=== PATIENT | male | born 1970 | race Caucasian/White ===

== ENCOUNTER 2021-09-01 18:55 | Inpatient (IN) | payer MEDICAID ==
[~2021-09-01] VITALS: Ht 165.1 cm; Wt 90.0 kg
[~2021-09-01 18:55] MED LIST: ASPI81TA53 PO; ATOR20TA66 PO; CLOP75TA34 PO; LACT10SO7 PO; PANT40TA54 PO; RIFA550T PO
[2021-09-01 19:44] LABS: BASOPHILS # (AUTO) 0.1 X10'3 (0-0.2); BASOPHILS % (AUTO) 1.8 % (0-1); EOSINOPHILS # (AUTO) 0.5 X10'3 (0-0.9); EOSINOPHILS % (AUTO) 12.2 % (0-6); HEMATOCRIT 23.8 % (42.0-52.0); HEMOGLOBIN 7.4 g/dl (14.0-17.9); LYMPHOCYTES % (AUTO) 26.3 % (21-51); MEAN CORPUSCULAR HEMOGLOBIN 24.6 PG (27.0-31.0); MEAN CORPUSCULAR HGB CONC 31.2 g/dL (33.0-36.5); MEAN CORPUSCULAR VOLUME 78.8 FL (78-98); MEAN PLATELET VOLUME 9.1 FL (7.4-10.4); MONOCYTES # (AUTO) 0.4 X10'3 (0-0.9); MONOCYTES % (AUTO) 10.3 % (2-12); NEUTROPHILS # (AUTO) 1.9 X10'3 (1.8-7.7); NEUTROPHILS % (AUTO) 49.4 % (42-75); PLATELET COUNT 57 X10'3 (140-440); RED BLOOD COUNT 3.01 X10'6 (4.70-6.10); RED CELL DISTRIBUTION WIDTH 19.3 % (11.5-14.5); WHITE BLOOD COUNT 3.9 X10'3 (4.5-11.0)
[2021-09-01 19:56] LABS: ALANINE AMINOTRANSFERASE 24 U/L (12-78); ALBUMIN 2.3 G/DL (3.4-5.0); ALBUMIN/GLOBULIN RATIO 0.7 (1.1-1.5); ALKALINE PHOSPHATASE 81 IU/L (46-116); ANION GAP 8 (8-16); ASPARTATE AMINO TRANSFERASE 30 U/L (10-37); BILIRUBIN,TOTAL 1.1 MG/DL (0.1-1.0); BLOOD UREA NITROGEN 22 MG/DL (7-18); BUN/CREATININE RATIO 24.7 (5.4-32.0); CALCIUM 7.5 MG/DL (8.5-10.1); CHLORIDE 109 MMOL/L (99-107); CREATININE 0.89 MG/DL (0.60-1.10); GLUCOSE 108 MG/DL (70-104); POTASSIUM 3.9 MMOL/L (3.5-5.1); SODIUM 140 MMOL/L (135-145); TOTAL CARBON DIOXIDE 22.9 MMOL/L (24-32); TOTAL PROTEIN 5.5 G/DL (6.4-8.2); eGFR > 90 ML/MIN
[2021-09-01 20:39] LABS: LARGE PLATELETS FEW; PLATELET ESTIMATE DECREASED
[2021-09-01 20:40] LABS: ANISOCYTOSIS 2+; ELLIPTOCYTES FEW; MICROCYTOSIS 1+; POLYCHROMASIA FEW; TEAR DROP CELLS FEW
[2021-09-01] MEDS ORDERED: octreotide inj. 500 MCG in normal saline 100ml IV soln 97.5 ML IV SCH (23:00)
[2021-09-01] MEDS ORDERED: pantoprazole 40MG/NS 100ML BAG 100 ML IV SCH (23:00)
[2021-09-01] MEDS ORDERED: octreotide 100mcg/1 ml ampule IV ONE (23:00)
[2021-09-01 23:05] LABS: GASTRIC OCCULT BLOOD POSITIVE (Neg)
[2021-09-01] MEDS: pantoprazole IV 40 MG in dextrose 5%-water 100 ML IV SCH (23:51)
[2021-09-02] VITALS (10 sets, daily range): BP systolic 101–135; BP diastolic 48–70
[2021-09-02] MEDS ORDERED: diphenhydrAMINE 50 mg/ml inj IV PRN (01:25)
[2021-09-02] MEDS ORDERED: HYDROmorphone inj. 0.5 MG/0.5 ML DISP.SYRIN IV PRN (01:25)
[2021-09-02] MEDS ORDERED: diphenhydrAMINE 25mg capsule PO PRN (01:25)
[2021-09-02] MEDS ORDERED: ondansetron 4mg rapidly disintigrating tab PO PRN (01:25)
[2021-09-02] MEDS ORDERED: mag hydrox/Alum hydrox/simeth 30ml oral suspension PO PRN (01:25)
[2021-09-02] MEDS ORDERED: magnesium hydroxide 30ml (MOM) UD suspension PO PRN (01:25)
[2021-09-02] MEDS ORDERED: bisacodyl 10mg suppository rectal RC PRN (01:25)
[2021-09-02] MEDS ORDERED: acetaminophen 650mg rectal suppository RC PRN (01:25)
[2021-09-02] MEDS ORDERED: ondansetron/PF 4mg/2ml inj IV PRN (01:25)
[2021-09-02] MEDS ORDERED: acetaminophen 325mg tablet PO PRN ×2 (01:25)
[2021-09-02] MEDS ORDERED: morphine 2 MG/ML inj. syringe IV PRN ×2 (01:25)
[2021-09-02 01:43] LABS: PARTIAL THROMBOPLASTIN TIME 32 SECONDS (22-32)
[2021-09-02 01:48] LABS: BASOPHILS # (AUTO) 0.1 X10'3 (0-0.2); BASOPHILS % (AUTO) 1.8 % (0-1); EOSINOPHILS # (AUTO) 0.5 X10'3 (0-0.9); EOSINOPHILS % (AUTO) 14.5 % (0-6); HEMATOCRIT 23.6 % (42.0-52.0); HEMOGLOBIN 7.5 g/dl (14.0-17.9); LYMPHOCYTES # (AUTO) 0.9 X10'3 (1.1-4.8); LYMPHOCYTES % (AUTO) 24.7 % (21-51); MEAN CORPUSCULAR HEMOGLOBIN 24.6 PG (27.0-31.0); MEAN CORPUSCULAR HGB CONC 31.6 g/dL (33.0-36.5); MEAN CORPUSCULAR VOLUME 77.8 FL (78-98); MEAN PLATELET VOLUME 10.8 FL (7.4-10.4); MONOCYTES # (AUTO) 0.3 X10'3 (0-0.9); MONOCYTES % (AUTO) 9.1 % (2-12); NEUTROPHILS # (AUTO) 1.8 X10'3 (1.8-7.7); NEUTROPHILS % (AUTO) 49.9 % (42-75); PLATELET COUNT 61 X10'3 (140-440); RED BLOOD COUNT 3.04 X10'6 (4.70-6.10); RED CELL DISTRIBUTION WIDTH 19.6 % (11.5-14.5); WHITE BLOOD COUNT 3.6 X10'3 (4.5-11.0)
[2021-09-02 01:51] LABS: LIPASE 156 U/L (73-393); MAGNESIUM 1.6 MG/DL (1.5-2.4)
[2021-09-02 02:28] LABS: PLATELET ESTIMATE DECREASED
[2021-09-02 02:29] LABS: LARGE PLATELETS FEW; POLYCHROMASIA FEW
[2021-09-02 02:30] LABS: ANISOCYTOSIS 2+; MICROCYTOSIS 1+; TEAR DROP CELLS FEW
[2021-09-02 02:32] LABS: ELLIPTOCYTES FEW
--- NOTE | 2021-09-02 02:34 | NUR ---
ISA CONTACTED IN REGARDS TO [facility]. NO BLOOD ORDERED AND NO NEW ORDERS RECIEVED. DR RUFF OF [facility]
[2021-09-02] MEDS ORDERED: LEVO75TA PO (03:14)
[2021-09-02] MEDS ORDERED: FENO48TA15 PO (03:17)
[2021-09-02] MEDS ORDERED: LACT10SO57 PO (03:18)
[2021-09-02] MEDS ORDERED: PROP10TA10 PO (03:20)
[2021-09-02] MEDS ORDERED: FERR325T28 PO (03:21)
[2021-09-02] MEDS: normal saline 1000ml 1,000 ML IV SCH ×4 (03:25→21:33)
[2021-09-02 04:25] LABS: CLARITY,URINE CLEAR (Clear); COLOR,URINE YELLOW (Yellow); GLUCOSE, URINE NEGATIVE (Neg); KETONES,URINE NEGATIVE (Neg); LEUKOCYTE ESTERASE ,URINE NEGATIVE (Neg); NITRITES, URINE NEGATIVE (Neg); OCCULT BLOOD,URINE NEGATIVE (Neg); PH,URINE 5.5 (4.8-8.0); PROTEIN,URINE NEGATIVE (Neg); UROBILINOGEN,URINE 0.2 E.U/dL (0.2-1.0)
[2021-09-02 04:34] LABS: UA COLLECTION TYPE NON-SPECIFIED
[2021-09-02] MEDS: pantoprazole IV 40 MG in dextrose 5%-water 100 ML IV SCH ×4 (05:08→20:42)
--- NOTE | 2021-09-02 06:30 | NUR ---
FIRST CONTACT WITH PT. PT RESTING IN BED, FLUIDS/MEDS INFUSING PER EMAR. DENIES PAIN. URINAL PROVIDED. NAD.
[2021-09-02] MEDS ORDERED: docusate sod 100mg capsule PO SCH (08:00)
[2021-09-02] MEDS: lactulose 20gm/30ml cup PO SCH ×2 (09:14→19:07)
[2021-09-02] MEDS: rifaximin 550mg tablet PO SCH ×2 (10:12→19:53)
--- NOTE | 2021-09-02 10:19 | NUR ---
HOSPITALIST RANDI. PT HAS QUESTIONS REGARDING HIS ADMISSION.
--- NOTE | 2021-09-02 11:50 | NUR ---
PT STATING HE WOULD LIKE TO LEAVE AMA. PT STATES 'HE IS HUNGRY' AND 'JUST LAYING HERE' WILL PAGE MD AGAIN REGARDING DIET ORDERS. PT AGREEABLE TO STAYING AT THIS TIME.
--- NOTE | 2021-09-02 11:55 | NUR ---
UPDATED VIA TELEPHONE ON POC AND PT STATUS.
--- NOTE | 2021-09-02 14:21 | NUR ---
HOSPITALIST PAGED AGAIN REGARDING DIET FOR PT.
[2021-09-02] MEDS ORDERED: iohexol 350MG/ML 100ml bottle IV ONE ×2 (14:51→17:18)
[2021-09-02] MEDS ORDERED: iohexol 350 MG/ML 50ML vial IV ONE (14:51)
[2021-09-02] MEDS ORDERED: heparin 1,000unit/ml 10ml vial 10 ML ONE (14:51)
[2021-09-02] MEDS ORDERED: LIDOcaine 1% (10mg/ml)w/preservative injection 20ml MDV ONE (14:51)
[2021-09-02] MEDS: octreotide inj. 500 MCG in normal saline 100ml IV soln 97.5 ML IV SCH (15:00)
[2021-09-02] MEDS ORDERED: fentaNYL/PF 50MCG/1 ML 2ML syringe ONE (16:05)
[2021-09-02] MEDS ORDERED: midazolam 1 mg/ML 2ml injection ONE ×2 (16:05→16:56)
[2021-09-02] MEDS ORDERED: nitroGLYCERIN-Tridil 50MG/D5W 250 ML IV ONE (16:44)
[2021-09-02] MEDS ORDERED: verapamil 2.5 mg/ml inj IV ONE (16:44)
[2021-09-02] MEDS ORDERED: clopidogrel 300mg tablet ONE (17:50)
--- NOTE | 2021-09-02 18:20 | NUR ---
REC'D BEDSIDE REPORT FROM CHIVO SWEET AFTER HEART CATH. PT IN STABLE CONDITION. POST OP VITALS STARTED.
--- NOTE | 2021-09-02 18:40 | NUR ---
Patient in room ED 15. I have received report from Cori WALDRON and had the opportunity to ask questions and assume patient care.
[2021-09-02] MEDS ORDERED: HYDROcodone/acetaminophen 10/325mg tab PO PRN (18:50)
[2021-09-02] MEDS ORDERED: nitroGLYCERIN 0.4mg SUBLingual tab SL PRN (18:50)
--- NOTE | 2021-09-02 18:57 | NUR ---
Problems reprioritized. Patient report given, questions answered & plan of care reviewed with CHIVO Tsang.
[2021-09-02] MEDS: docusate sod 100mg capsule PO SCH (19:53)
[2021-09-02] MEDS: aspirin 81mg tab.chew PO SCH (19:53)
[2021-09-02] MEDS ORDERED: temazepam 15mg capsule PO PRN (21:00)
[2021-09-03] VITALS (16 sets, daily range): BP systolic 86–138; BP diastolic 44–75
[2021-09-03] MEDS: lactulose 20gm/30ml cup PO SCH ×3 (01:02→16:55)
[2021-09-03] MEDS: pantoprazole IV 40 MG in dextrose 5%-water 100 ML IV SCH (01:04)
[2021-09-03] MEDS: normal saline 1000ml 1,000 ML IV SCH ×5 (02:50→18:50)
[2021-09-03 06:26] LABS: BASOPHILS % (AUTO) 1.5 % (0-1); EOSINOPHILS # (AUTO) 0.3 X10'3 (0-0.9); EOSINOPHILS % (AUTO) 10.3 % (0-6); LYMPHOCYTES # (AUTO) 0.6 X10'3 (1.1-4.8); LYMPHOCYTES % (AUTO) 20.1 % (21-51); MEAN CORPUSCULAR HGB CONC 31.9 g/dL (33.0-36.5); MEAN CORPUSCULAR VOLUME 78.3 FL (78-98); MONOCYTES # (AUTO) 0.3 X10'3 (0-0.9); MONOCYTES % (AUTO) 10.5 % (2-12); NEUTROPHILS # (AUTO) 1.7 X10'3 (1.8-7.7); NEUTROPHILS % (AUTO) 57.6 % (42-75); RED BLOOD COUNT 2.59 X10'6 (4.70-6.10); RED CELL DISTRIBUTION WIDTH 19.4 % (11.5-14.5); WHITE BLOOD COUNT 2.9 X10'3 (4.5-11.0)
--- NOTE | 2021-09-03 06:29 | NUR ---
Problems reprioritized. Patient report given, questions answered & plan of care reviewed with Vibha WALDRON.
[2021-09-03 07:00] LABS: ALANINE AMINOTRANSFERASE 30 U/L (12-78); ALBUMIN/GLOBULIN RATIO 0.7 (1.1-1.5); ALKALINE PHOSPHATASE 62 IU/L (46-116); ANION GAP 9 (8-16); ASPARTATE AMINO TRANSFERASE 45 U/L (10-37); BILIRUBIN,TOTAL 1.6 MG/DL (0.1-1.0); BLOOD UREA NITROGEN 17 MG/DL (7-18); BUN/CREATININE RATIO 17.7 (5.4-32.0); CALCIUM 7.1 MG/DL (8.5-10.1); CHLORIDE 109 MMOL/L (99-107); CREATININE 0.96 MG/DL (0.60-1.10); GLUCOSE 95 MG/DL (70-104); SODIUM 142 MMOL/L (135-145); TOTAL CARBON DIOXIDE 24.3 MMOL/L (24-32); TOTAL PROTEIN 4.8 G/DL (6.4-8.2); eGFR 83 ML/MIN
[2021-09-03 07:03] LABS: HEMATOCRIT 20.3 % (42.0-52.0); HEMOGLOBIN 6.5 g/dl (14.0-17.9); PLATELET COUNT 46 X10'3 (140-440)
--- NOTE | 2021-09-03 07:05 | NUR ---
PAGER ID: [phone] MESSAGE: [id number]. Patient has critical lab values: Hgb 6.5 Hct 20.3 Plt 46 Vibha WALDRON [id number]
[2021-09-03] MEDS: clopidogrel 75mg tablet PO SCH (07:48)
[2021-09-03] MEDS: aspirin 81mg tab.chew PO SCH (07:48)
[2021-09-03] MEDS: pantoprazole 40mg Tablet.DR PO SCH ×2 (07:49→20:16)
[2021-09-03] MEDS: sucralfate 1 gm tablet PO SCH ×2 (07:49→16:55)
[2021-09-03 07:50] LABS: PLATELET ESTIMATE DECREASED; TOTAL CELLS COUNTED 100
[2021-09-03 07:53] LABS: ANISOCYTOSIS 2+; MICROCYTOSIS 1+
[2021-09-03 07:54] LABS: HYPOCHROMASIA 1+; POLYCHROMASIA FEW; TEAR DROP CELLS FEW
[2021-09-03 07:55] LABS: ELLIPTOCYTES FEW
[2021-09-03] MEDS: docusate sod 100mg capsule PO SCH ×2 (07:56→20:15)
[2021-09-03] MEDS ORDERED: aspirin 81mg tab.chew PO SCH (08:00)
[2021-09-03] MEDS ORDERED: MIDAZolam 1 MG/ML 5ML VIAL ONE (09:15)
[2021-09-03] MEDS ORDERED: fentaNYL/PF 50MCG/1 ML 2ML syringe ONE (09:15)
[2021-09-03] MEDS ORDERED: LIDOcaine Viscous 15ml cup ONE (09:15)
--- NOTE | 2021-09-03 11:19 | NUR ---
PAGER ID: [phone] MESSAGE: [id number]. Patient has to get redrawn for type & screen as blood band was not on wrist. Orders for stat lab draw are in. Vibha WALDRON [id number]
[2021-09-03] MEDS: carvedilol 6.25mg tablet PO SCH (12:44)
[2021-09-03] MEDS: rifaximin 550mg tablet PO SCH ×2 (12:44→20:16)
[2021-09-03] MEDS: octreotide inj. 500 MCG in normal saline 100ml IV soln 97.5 ML IV SCH (16:57)
--- NOTE | 2021-09-03 18:33 | NUR ---
Problems reprioritized. Patient report given, questions answered & plan of care reviewed with Sylvia WALDRON.
--- NOTE | 2021-09-03 18:33 | NUR ---
Dr. Perez notified of patient's BP in 80s/90s SBP. Probably due to coreg. No interventions at the time.
--- NOTE | 2021-09-03 18:34 | NUR ---
Patient tolerated blood transfusion well, so symptoms of reaction.
[2021-09-03] MEDS ORDERED: pantoprazole 40mg Tablet.DR PO SCH (20:00)
[2021-09-03] MEDS: HYDROcodone/acetaminophen 10/325mg tab PO PRN (20:15)
[2021-09-04] VITALS (10 sets, daily range): BP systolic 98–129; BP diastolic 57–73
[2021-09-04] MEDS: HYDROcodone/acetaminophen 10/325mg tab PO PRN (01:42)
[2021-09-04] MEDS: lactulose 20gm/30ml cup PO SCH ×3 (01:42→16:00)
[2021-09-04] MEDS: normal saline 1000ml 1,000 ML IV SCH ×4 (01:43→13:25)
--- NOTE | 2021-09-04 06:49 | NUR ---
Problems reprioritized. Patient report given, questions answered & plan of care reviewed with Angela WALDRON .
--- NOTE | 2021-09-04 06:53 | NUR ---
Patient in room PCU 3026. I have received report from Sylvia and had the opportunity to ask questions and assume patient care.
[2021-09-04] MEDS: octreotide inj. 500 MCG in normal saline 100ml IV soln 97.5 ML IV SCH (07:00)
[2021-09-04 07:48] LABS: BASOPHILS % (AUTO) 1.1 % (0-1); EOSINOPHILS # (AUTO) 0.3 X10'3 (0-0.9); EOSINOPHILS % (AUTO) 9.3 % (0-6); HEMATOCRIT 23.3 % (42.0-52.0); HEMOGLOBIN 7.3 g/dl (14.0-17.9); LYMPHOCYTES # (AUTO) 0.8 X10'3 (1.1-4.8); LYMPHOCYTES % (AUTO) 24.3 % (21-51); MEAN CORPUSCULAR HEMOGLOBIN 24.7 PG (27.0-31.0); MEAN CORPUSCULAR HGB CONC 31.4 g/dL (33.0-36.5); MEAN CORPUSCULAR VOLUME 78.6 FL (78-98); MEAN PLATELET VOLUME 9.2 FL (7.4-10.4); MONOCYTES # (AUTO) 0.4 X10'3 (0-0.9); MONOCYTES % (AUTO) 11.5 % (2-12); NEUTROPHILS # (AUTO) 1.8 X10'3 (1.8-7.7); NEUTROPHILS % (AUTO) 53.8 % (42-75); RED BLOOD COUNT 2.96 X10'6 (4.70-6.10); RED CELL DISTRIBUTION WIDTH 18.9 % (11.5-14.5); WHITE BLOOD COUNT 3.3 X10'3 (4.5-11.0)
[2021-09-04] MEDS: carvedilol 6.25mg tablet PO SCH (08:00)
[2021-09-04] MEDS: docusate sod 100mg capsule PO SCH (08:00)
[2021-09-04] MEDS: aspirin 81mg tab.chew PO SCH (08:00)
[2021-09-04 08:03] LABS: PLATELET COUNT 45 X10'3 (140-440)
--- NOTE | 2021-09-04 08:17 | NUR ---
Dr. Perez made aware via spok that patient had Critical Platelet- 45 called in this morning. Waiting for his recommendation
[2021-09-04 08:30] LABS: ALBUMIN/GLOBULIN RATIO 0.7 (1.1-1.5); ANION GAP 3 (8-16); ASPARTATE AMINO TRANSFERASE 29 U/L (10-37); BILIRUBIN,TOTAL 1.8 MG/DL (0.1-1.0); BLOOD UREA NITROGEN 18 MG/DL (7-18); BUN/CREATININE RATIO 17.8 (5.4-32.0); CALCIUM 6.8 MG/DL (8.5-10.1); CHLORIDE 109 MMOL/L (99-107); CREATININE 1.01 MG/DL (0.60-1.10); GLUCOSE 75 MG/DL (70-104); POTASSIUM 3.8 MMOL/L (3.5-5.1); SODIUM 139 MMOL/L (135-145); TOTAL CARBON DIOXIDE 26.8 MMOL/L (24-32); eGFR 79 ML/MIN
[2021-09-04 08:31] LABS: ALANINE AMINOTRANSFERASE 25 U/L (12-78); ALKALINE PHOSPHATASE 58 IU/L (46-116); CHOL/HDL RATIO 4.7 (0.00-4.99); CHOLESTEROL 107 MG/DL (0-200); HDL CHOLESTEROL 23 MG/DL (35-60); LDL CHOLESTEROL 73 MG/DL (50-100); TRIGLYCERIDES 85 MG/DL (20-135)
[2021-09-04] MEDS ORDERED: PANT40TA54 PO (08:48)
[2021-09-04] MEDS ORDERED: CLOP75TA34 PO (08:48)
[2021-09-04] MEDS ORDERED: ROSU20TA2 PO (08:49)
[2021-09-04] MEDS: sucralfate 1 gm tablet PO SCH (10:07)
[2021-09-04] MEDS: clopidogrel 75mg tablet PO SCH (10:08)
[2021-09-04] MEDS: pantoprazole 40mg Tablet.DR PO SCH (10:09)
[2021-09-04] MEDS: rifaximin 550mg tablet PO SCH (10:12)
--- NOTE | 2021-09-04 16:29 | NUR ---
Blood transfusion competed, no s/s of transfusion reaction noted. patient tolerated it well.
--- NOTE | 2021-09-04 16:54 | NUR ---
Patient d/c to go home per DR. Perez post blood transfusion. D/c instructions/directions printed and verbally given to patient. 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 He is aware to picker and sorter load and unload prescription medication sent to pharmacy by provider. Patient will scheduled his follow up appointment with his primary care provider after d/c. IV line and cafeteria monitor removed. He denied any discomfort at the time of d/c. He was transported to the [facility] by [facility] with all personal belonging with no s/s of distress noted.
[2021-09-06] MEDS ORDERED: carvedilol 6.25mg tablet PO SCH (08:00)
== END 2021-09-04 16:45 | disposition home health service (06) | DRG 175 ==
LOC: ER 18:56 → ED HOLD 09-02 01:29 → PCU 3S 09-02 18:30
PROVIDERS: ADMIT Family Medicine; ATTEND Internal Medicine
PROC: 4A023N7 Measurement of Cardiac Sampling and Pressure, Left Heart, Percutaneous Approach (ICD-10-PCS; principal; 2021-09-02)
PROC: 027034Z Dilation of Coronary Artery, One Artery with Drug-eluting Intraluminal Device, Percutaneous Approach (ICD-10-PCS; 2021-09-02)
PROC: B2111ZZ Fluoroscopy of Multiple Coronary Arteries using Low Osmolar Contrast (ICD-10-PCS; 2021-09-02)
PROC: 0DJ08ZZ Inspection of Upper Intestinal Tract, Via Natural or Artificial Opening Endoscopic (ICD-10-PCS; 2021-09-03)
PROC: 30233N1 Transfusion of Nonautologous Red Blood Cells into Peripheral Vein, Percutaneous Approach (ICD-10-PCS; 2021-09-03)
DX: I25.110 Atherosclerotic heart disease of native coronary artery with unstable angina pectoris (principal); D61.818 Other pancytopenia; K72.10 Chronic hepatic failure without coma; K76.6 Portal hypertension; E88.09 Other disorders of plasma-protein metabolism, not elsewhere classified; D69.59 Other secondary thrombocytopenia; I50.9 Heart failure, unspecified; I11.0 Hypertensive heart disease with heart failure; D73.1 Hypersplenism; K31.84 Gastroparesis; E78.5 Hyperlipidemia, unspecified; K75.81 Nonalcoholic steatohepatitis (NASH); G47.33 Obstructive sleep apnea (adult) (pediatric); K21.9 Gastro-esophageal reflux disease without esophagitis; K92.1 Melena; I86.4 Gastric varices; K29.80 Duodenitis without bleeding; K31.89 Other diseases of stomach and duodenum; K74.60 Unspecified cirrhosis of liver; Z79.02 Long term (current) use of antithrombotics/antiplatelets; Z79.82 Long term (current) use of aspirin; I25.2 Old myocardial infarction; Z79.899 Other long term (current) drug therapy
CPT/HCPCS: 36415; 36430; 43235; 71045; 76705; 80053; 80061; 81003; 82140; 82271; 83690; 83735; 83880; 84100; 84484; 85007; 85008; 85025; 85610; 85730; 86885; 86900; 86901; 86920; 87081; 93005; 93458; 99152; 99153; 99285; A4620; A6258; C1725; C1751; C1769; C1874; C1894; C9113; C9600; G0378; J1644; J2250; J2354; J3010; J3490; J7030; J7040; J7070; P9016; Q9967

== ENCOUNTER 2021-09-22 18:15 | Emergency (ER) | payer MEDICAID ==
[~2021-09-22] VITALS: Ht 172.7 cm; Wt 90.9 kg
[~2021-09-22 18:15] MED LIST changes: -ASPI81TA53 PO; -ATOR20TA66 PO; +FENO48TA15 PO; +FERR325T28 PO; +LACT10SO57 PO; -LACT10SO7 PO; +LEVO75TA PO; +PROP10TA10 PO; -RIFA550T PO; +ROSU20TA2 PO
--- NOTE | 2021-09-22 19:21 | NUR ---
OFFERED WAD LUBRICATOR TO UNLOAD PATIENT IN RAP ([facility]). WAD LUBRICATOR DENIED, DUE TO COLD. BASS VIOL REPAIRERCHIVO TREJO MADE AWARE.
[2021-09-22 20:26] LABS: BASOPHILS % (AUTO) 0.7 % (0-1); EOSINOPHILS # (AUTO) 0.1 X10'3 (0-0.9); EOSINOPHILS % (AUTO) 1.9 % (0-6); HEMATOCRIT 37.7 % (42.0-52.0); HEMOGLOBIN 12.1 g/dl (14.0-17.9); LYMPHOCYTES # (AUTO) 0.4 X10'3 (1.1-4.8); LYMPHOCYTES % (AUTO) 7.6 % (21-51); MEAN CORPUSCULAR HEMOGLOBIN 26.3 PG (27.0-31.0); MEAN CORPUSCULAR HGB CONC 32.1 g/dL (33.0-36.5); MEAN CORPUSCULAR VOLUME 82.2 FL (78-98); MEAN PLATELET VOLUME 9.7 FL (7.4-10.4); MONOCYTES # (AUTO) 0.5 X10'3 (0-0.9); MONOCYTES % (AUTO) 8.1 % (2-12); NEUTROPHILS # (AUTO) 4.6 X10'3 (1.8-7.7); NEUTROPHILS % (AUTO) 81.7 % (42-75); PLATELET COUNT 72 X10'3 (140-440); RED BLOOD COUNT 4.59 X10'6 (4.70-6.10); RED CELL DISTRIBUTION WIDTH 24.4 % (11.5-14.5); WHITE BLOOD COUNT 5.6 X10'3 (4.5-11.0)
[2021-09-22 20:42] LABS: ALANINE AMINOTRANSFERASE 24 U/L (12-78); ALBUMIN 2.8 G/DL (3.4-5.0); ALBUMIN/GLOBULIN RATIO 0.7 (1.1-1.5); ALKALINE PHOSPHATASE 82 IU/L (46-116); ANION GAP 12 (8-16); ASPARTATE AMINO TRANSFERASE 51 U/L (10-37); BILIRUBIN,TOTAL 2.5 MG/DL (0.1-1.0); BLOOD UREA NITROGEN 17 MG/DL (7-18); BUN/CREATININE RATIO 18.9 (5.4-32.0); CALCIUM 8.4 MG/DL (8.5-10.1); CHLORIDE 109 MMOL/L (99-107); GLUCOSE 120 MG/DL (70-104); POTASSIUM 4.2 MMOL/L (3.5-5.1); SODIUM 141 MMOL/L (135-145); TOTAL CARBON DIOXIDE 20.3 MMOL/L (24-32); TOTAL PROTEIN 6.6 G/DL (6.4-8.2); eGFR 90 ML/MIN
[2021-09-22 20:58] LABS: ANISOCYTOSIS 3+; PLATELET ESTIMATE DECREASED
[2021-09-22 21:00] LABS: ELLIPTOCYTES FEW; TEAR DROP CELLS FEW
[2021-09-22 21:02] LABS: STOMATOCYTES FEW
[2021-09-22 23:40] VITALS: BP 119/77
== END 2021-09-22 23:42 | disposition home or self-care (01) ==
LOC: ER 18:16
DX: R07.89 Other chest pain (principal); Z20.822 Contact with and (suspected) exposure to COVID-19; R50.9 Fever, unspecified; I25.10 Atherosclerotic heart disease of native coronary artery without angina pectoris; I10 Essential (primary) hypertension; I25.2 Old myocardial infarction; F17.210 Nicotine dependence, cigarettes, uncomplicated; G47.30 Sleep apnea, unspecified; Z79.899 Other long term (current) drug therapy
CPT/HCPCS: 36415; 71045; 80053; 83880; 84145; 84484; 85008; 85025; 87635; 93005; 99285; C9803